=== PATIENT | male | born 1940 | race Caucasian/White ===

== ENCOUNTER 2021-05-06 01:08 | Observation (INO) | payer OTHER ==
[2021-05-06 03:17] LABS: BASO % 0.7 % (0-2.0); EOS % 1.3 % (0-4.5); HEMATOCRIT 39.1 % (35.4-49); HEMOGLOBIN 13.4 GM/dL (11.7-16.9); LYMPH % 14.6 % (8-40); MCHC 34.2 g/dl (32.0-35.9); MEAN CELL VOLUME 99.4 fl (80-96); MEAN PLT VOLUME 9.6 fl (7.5-11.1); MONO % 12.5 % (3.8-10.2); NEUT % 70.9 % (42.8-82.8); PLATELET COUNT 189 10^3/uL (134-434); RBC 3.93 M/mm3 (4.00-5.60); RDW 13.2 % (11.9-15.9); WHITE BLOOD COUNT 4.4 K/mm3 (4.0-10.0)
[2021-05-06 03:35] LABS: CHLORIDE 106 mmol/L (98-107); SODIUM 140 mmol/L (136-145)
[2021-05-06 03:37] LABS: ALBUMIN 4.1 g/dl (3.4-5.0); ANION GAP 7 MMOL/L (8-16); BLOOD UREA NITROGEN 35.2 mg/dL (7-18); CALCIUM 9.5 mg/dL (8.5-10.1); CO2 27 mmol/L (21-32); GLUCOSE,RANDOM 87 mg/dL (74-106)
[2021-05-06 03:40] LABS: CREATININE 1.3 mg/dL (0.55-1.3); SGOT/AST 43 U/L (15-37); SGPT/ALT 41 U/L (13-61)
[2021-05-06 03:42] LABS: BILIRUBIN,TOTAL 0.4 mg/dL (0.2-1); TOT PROT 7.3 g/dl (6.4-8.2)
[2021-05-06 03:44] LABS: ALK PHOS 97 U/L (45-117)
[2021-05-06 03:47] LABS: INR 1.13 (0.83-1.09); PROTHROMBIN TIME (PATIENT) 12.7 SEC (9.7-13.0)
[2021-05-06 03:50] LABS: ACTIVATED PTT 32.3 SECONDS (25.2-36.5)
[2021-05-06] MEDS ORDERED: ACETAMINOPHEN 1000 MG/100 ML VIAL IVPB ONE (04:38)
[2021-05-06] MEDS ORDERED: ACETAMINOPHEN INJECTION 100 ML IVPB ONE (04:54)
[2021-05-06] MEDS ORDERED: ACETAMINOPHEN 500 MG TABLET (FP) PO ONE (05:04)
[2021-05-06] MEDS ORDERED: ACETAMINOPHEN 325 MG TABLET (FP) ONE ×2 (05:33→21:09)
[2021-05-06] MEDS ORDERED: DIPHTH,PERTUSS(ACELL),TET 0.5 ML DISP.SYRIN IM ONE ×2 (05:40→05:54)
[2021-05-06] MEDS ORDERED: ACETAMINOPHEN 325 MG TABLET (FP) PO PRN (11:54)
[2021-05-06] MEDS ORDERED: amLODIPine BESYLATE 10 MG TABLET (FP) PO ONE (12:51)
[2021-05-06] MEDS ORDERED: LOSARTAN POTASSIUM 25 MG TABLET PO ONE (12:52)
[2021-05-06] MEDS: MULTIVITAMINS (DAILY MVI) TABLET (FP) PO SCH (13:00)
[2021-05-06] MEDS: THIAMINE HCL 100 MG TABLET (FP) PO SCH (13:00)
[2021-05-06] MEDS ORDERED: MULTIVITAMINS (DAILY MVI) TABLET (FP) ONE (13:21)
[2021-05-06] MEDS ORDERED: THIAMINE HCL 100 MG TABLET (FP) ONE (13:22)
[2021-05-06] MEDS ORDERED: amLODIPine BESYLATE 5 MG TABLET (FP) ONE (13:22)
[2021-05-06] MEDS ORDERED: LOSARTAN POTASSIUM 50 MG TABLET ONE (13:22)
[2021-05-06 19:52] LABS: COCAINE, UR NEGATIVE (NEGATIVE); METHADONE, UR NEGATIVE (NEGATIVE); OPIATES, URI NEGATIVE (NEGATIVE); URINE BARBITURATES NEGATIVE (NEGATIVE); URINE BENZODIAZEPINES NEGATIVE (NEGATIVE)
[2021-05-06 19:53] LABS: PHENCYCLIDINE,URINE NEGATIVE (NEGATIVE)
[2021-05-06 20:01] LABS: URINE AMPHETAMINES NEGATIVE (NEGATIVE)
[2021-05-06] MEDS ORDERED: APIXABAN 5 MG TABLET ONE (21:09)
[2021-05-06] MEDS: APIXABAN 5 MG TABLET PO SCH (21:19)
[2021-05-06] MEDS ORDERED: ATORVASTATIN CA 10 MG TABLET (FP) PO SCH (22:00)
[2021-05-07 01:52] VITALS: BMI 23.2
[2021-05-07 06:49] LABS: BASO % 0.4 % (0-2.0); EOS % 0.8 % (0-4.5); HEMATOCRIT 35.2 % (35.4-49); HEMOGLOBIN 12.2 GM/dL (11.7-16.9); LYMPH % 12.5 % (8-40); MCHC 34.7 g/dl (32.0-35.9); MEAN CELL VOLUME 98.2 fl (80-96); MEAN PLT VOLUME 9.7 fl (7.5-11.1); MONO % 15.1 % (3.8-10.2); NEUT % 71.2 % (42.8-82.8); PLATELET COUNT 168 10^3/uL (134-434); RBC 3.59 M/mm3 (4.00-5.60); WHITE BLOOD COUNT 4.2 K/mm3 (4.0-10.0)
[2021-05-07 07:06] LABS: CALCIUM 8.7 mg/dL (8.5-10.1)
[2021-05-07 07:07] LABS: BLOOD UREA NITROGEN 30.6 mg/dL (7-18); MAGNESIUM 2.1 mg/dL (1.8-2.4)
[2021-05-07 07:10] LABS: CREATININE 1.1 mg/dL (0.55-1.3)
[2021-05-07 07:11] LABS: BILIRUBIN,TOTAL 0.8 mg/dL (0.2-1); TOT PROT 5.9 g/dl (6.4-8.2)
[2021-05-07 07:26] LABS: ALBUMIN 3.1 g/dl (3.4-5.0)
[2021-05-07] MEDS: amLODIPine BESYLATE 10 MG TABLET (FP) PO SCH (09:49)
[2021-05-07] MEDS: LOSARTAN POTASSIUM 25 MG TABLET PO SCH (09:50)
[2021-05-07] MEDS: THIAMINE HCL 100 MG TABLET (FP) PO SCH (09:50)
[2021-05-07] MEDS: MULTIVITAMINS (DAILY MVI) TABLET (FP) PO SCH (09:50)
[2021-05-07] MEDS: APIXABAN 5 MG TABLET PO SCH ×2 (09:50→21:06)
[2021-05-07] MEDS ORDERED: PNEUMOC 13-VAL CONJ-DIP CRM/PF 0.5 ML DISP.SYRIN IM ONE (10:00)
[2021-05-08 07:33] LABS: BASO % 0.5 % (0-2.0); EOS % 0.8 % (0-4.5); HEMOGLOBIN 12.8 GM/dL (11.7-16.9); LYMPH % 12.4 % (8-40); MCHC 34.6 g/dl (32.0-35.9); MEAN CELL VOLUME 98.1 fl (80-96); MEAN PLT VOLUME 9.7 fl (7.5-11.1); MONO % 14.1 % (3.8-10.2); NEUT % 72.2 % (42.8-82.8); PLATELET COUNT 182 10^3/uL (134-434); RBC 3.77 M/mm3 (4.00-5.60); RDW 12.9 % (11.9-15.9)
[2021-05-08 07:55] LABS: CALCIUM 9.4 mg/dL (8.5-10.1)
[2021-05-08 07:56] LABS: ALBUMIN 3.4 g/dl (3.4-5.0); BLOOD UREA NITROGEN 29.1 mg/dL (7-18)
[2021-05-08 08:00] LABS: BILIRUBIN,TOTAL 0.7 mg/dL (0.2-1); TOT PROT 6.5 g/dl (6.4-8.2)
[2021-05-08] MEDS: amLODIPine BESYLATE 10 MG TABLET (FP) PO SCH (09:28)
[2021-05-08] MEDS: APIXABAN 5 MG TABLET PO SCH (09:28)
[2021-05-08] MEDS: THIAMINE HCL 100 MG TABLET (FP) PO SCH (09:28)
[2021-05-08] MEDS: MULTIVITAMINS (DAILY MVI) TABLET (FP) PO SCH (09:28)
[2021-05-08] MEDS: LOSARTAN POTASSIUM 25 MG TABLET PO SCH (09:28)
[2021-05-08] MEDS ORDERED: LOSARTAN POTASSIUM 50 MG TABLET PO SCH (11:18)
[2021-05-08 15:21] VITALS: BP 135/83; PULSE 66; TEMP 97.4
== END 2021-05-08 17:19 | disposition home or self-care (01) ==
LOC: JER 01:08 → JERBED 10:07 → J4W 05-07 02:00
PROVIDERS: ADMIT Internal Medicine
PROC: 3E0234Z Introduction of Serum, Toxoid and Vaccine into Muscle, Percutaneous Approach (ICD-10-PCS; principal; 2021-05-06)
DX: S52.209A Unspecified fracture of shaft of unspecified ulna, initial encounter for closed fracture (principal); V47.5XXA Car driver injured in collision with fixed or stationary object in traffic accident, initial encounter; Y93.89 Activity, other specified; Y92.89 Other specified places as the place of occurrence of the external cause; I48.91 Unspecified atrial fibrillation; Z79.01 Long term (current) use of anticoagulants; I10 Essential (primary) hypertension; R55 Syncope and collapse; G31.84 Mild cognitive impairment of uncertain or unknown etiology; R42 Dizziness and giddiness; R51.9 Headache, unspecified; R20.0 Anesthesia of skin
CPT/HCPCS: 36415; 70450-TC; 71045-TC-FY; 72125-TC; 73090-TC-LT-FY; 73110-TC-LT-FY; 73130-TC-LT-FY; 80053; 80307; 82550; 82553; 83735; 84443; 84484; 85025; 85610; 85730; 86850; 86900; 86901; 90715; 93005; 93010; 93880-TC; 96372; 99285-25; C9803; G0378; U0003; U0005

== ENCOUNTER 2021-05-17 08:30 | Day surgery (SDC) | payer OTHER ==
[2021-05-16 16:14] VITALS: BMI 23.3
[2021-05-17] MEDS ORDERED: MIDAZOLAM HCL 2 MG/2 ML SINGLE DOSE VIAL ONE (11:50)
[2021-05-17] MEDS ORDERED: ROPIVACAINE HCL 0.5% 30ML VIAL ONE (11:50)
[2021-05-17] MEDS ORDERED: LACTATED RINGERS SOLUTION 1,000 ML IV SCH (15:00)
[2021-05-17] MEDS ORDERED: ONDANSETRON 4 MG/2 ML VIAL IVPUSH PRN (15:00)
[2021-05-17] MEDS ORDERED: oxyCODONE HCL 5 MG TABLET PO PRN ×2 (15:22)
[2021-05-17] MEDS ORDERED: ACETAMINOPHEN 500 MG TABLET (FP) PO SCH (15:30)
[2021-05-17] MEDS ORDERED: ACETAMINOPHEN INJECTION 100 ML IVPB ONE (15:41)
[2021-05-17] MEDS: ACETAMINOPHEN 1000 MG/100 ML VIAL IVPB ONE ×2 (15:55→17:10)
[2021-05-17] MEDS: ACETAMINOPHEN 500 MG TABLET (FP) PO SCH (21:32)
[2021-05-17] MEDS: APIXABAN 5 MG TABLET PO SCH (22:47)
[2021-05-18] MEDS: ACETAMINOPHEN 500 MG TABLET (FP) PO SCH ×2 (03:37→09:13)
[2021-05-18] MEDS: APIXABAN 5 MG TABLET PO SCH (09:11)
[2021-05-18 09:19] VITALS: BP 115/68; PULSE 65; TEMP 98.1
[2021-05-18] MEDS ORDERED: amLODIPine BESYLATE 10 MG TABLET (FP) PO SCH (10:00)
[2021-05-18] MEDS ORDERED: THIAMINE HCL 100 MG TABLET (FP) PO SCH (10:00)
[2021-05-18] MEDS ORDERED: LOSARTAN POTASSIUM 25 MG TABLET PO SCH (10:00)
== END 2021-05-18 11:11 | disposition home or self-care (01) ==
LOC: FASUSAT 08:30 → FASU 08:30 → FM/S 14:44 → FASUSAT 05-18 11:11
PROVIDERS: ATTEND Orthopaedic Surgery
PROC: 0PSL04Z Reposition Left Ulna with Internal Fixation Device, Open Approach (ICD-10-PCS; principal; 2021-05-17 13:29)
DX: S52.202A Unspecified fracture of shaft of left ulna, initial encounter for closed fracture (principal); X58.XXXA Exposure to other specified factors, initial encounter; Y93.9 Activity, unspecified; Y92.9 Unspecified place or not applicable
CPT/HCPCS: 73110-TC-LT-FY; 94760; 97116-GP; 97162-GP; J0131

== ENCOUNTER 2021-07-10 12:54 | Inpatient (IN) | payer OTHER, MEDICARE ==
[2021-07-10 13:56] VITALS: BMI 23.3
[2021-07-10 16:28] LABS: BASO % 0.3 % (0-2.0); EOS % 0.3 % (0-4.5); HEMATOCRIT 32.7 % (35.4-49); HEMOGLOBIN 11.2 GM/dL (11.7-16.9); LYMPH % 11.4 % (8-40); MCH 33.6 pg (25.7-33.7); MCHC 34.2 g/dl (32.0-35.9); MEAN CELL VOLUME 98.2 fl (80-96); MEAN PLT VOLUME 9.5 fl (7.5-11.1); MONO % 12.7 % (3.8-10.2); NEUT % 75.3 % (42.8-82.8); PLATELET COUNT 190 10^3/uL (134-434); RBC 3.33 M/mm3 (4.00-5.60); WHITE BLOOD COUNT 4.4 K/mm3 (4.0-10.0)
[2021-07-10 16:49] LABS: CHLORIDE 107 mmol/L (98-107); SODIUM 144 mmol/L (136-145)
[2021-07-10 16:51] LABS: ALBUMIN 3.7 g/dl (3.4-5.0); ANION GAP 9 MMOL/L (8-16); BLOOD UREA NITROGEN 29.6 mg/dL (7-18); CALCIUM 9.5 mg/dL (8.5-10.1); CO2 28 mmol/L (21-32); GLUCOSE,RANDOM 103 mg/dL (74-106)
[2021-07-10 16:54] LABS: SGPT/ALT 74 U/L (13-61)
[2021-07-10 16:55] LABS: SGOT/AST 210 U/L (15-37)
[2021-07-10 16:56] LABS: BILIRUBIN,TOTAL 0.8 mg/dL (0.2-1); TOT PROT 6.6 g/dl (6.4-8.2)
[2021-07-10 16:57] LABS: ALK PHOS 102 U/L (45-117)
[2021-07-10] MEDS ORDERED: LIDOCAINE PATCH REMOVAL MC SCH (22:00)
[2021-07-10] MEDS ORDERED: POLYETHYLENE GLYCOL (HEALTHYLAX) 3350 17 GM PACKET PO SCH (23:02)
[2021-07-10] MEDS ORDERED: SENNOSIDES 8.6MG TABLET (FP) PO PRN (23:02)
[2021-07-10] MEDS ORDERED: DOCUSATE SODIUM 100 MG CAPSULE (FP) PO SCH (23:15)
[2021-07-10] MEDS ORDERED: LIDOCAINE 5% TOPICAL PATCH TP PRN (23:18)
[2021-07-11] MEDS ORDERED: APIXABAN 5 MG TABLET ONE ×2 (00:21→12:17)
[2021-07-11] MEDS: APIXABAN 5 MG TABLET PO SCH ×2 (00:51→12:28)
[2021-07-11] MEDS ORDERED: FOLIC ACID INJECTION - 1 MG, THIAMINE HCL 100 MG, MULTIVIT INJECTION ADULT 10 ML in SOD... IVPB ONE (01:00)
[2021-07-11 01:04] LABS: PH,URINE 6.5 (5.0-8.0); URINE APPEARANCE CLEAR; URINE BILIRUBIN NEGATIVE (NEGATIVE); URINE COLOR YELLOW; URINE GLUCOSE (UA) NEGATIVE (NEGATIVE); URINE KETONE NEGATIVE (NEGATIVE); URINE LEUK ESTERASE NEGATIVE (NEGATIVE); URINE NITRITE NEGATIVE (NEGATIVE); URINE PROTEIN TRACE (NEGATIVE)
[2021-07-11 01:11] LABS: COCAINE, UR NEGATIVE (NEGATIVE); METHADONE, UR NEGATIVE (NEGATIVE); OPIATES, URI NEGATIVE (NEGATIVE); PHENCYCLIDINE,URINE NEGATIVE (NEGATIVE); URINE BARBITURATES NEGATIVE (NEGATIVE)
[2021-07-11 01:12] LABS: URINE AMPHETAMINES NEGATIVE (NEGATIVE); URINE BENZODIAZEPINES NEGATIVE (NEGATIVE)
[2021-07-11 07:10] LABS: HEMATOCRIT 33.6 % (35.4-49); HEMOGLOBIN 10.9 GM/dL (11.7-16.9); MCH 32.5 pg (25.7-33.7); MCHC 32.4 g/dl (32.0-35.9); MEAN CELL VOLUME 100.2 fl (80-96); MEAN PLT VOLUME 10.2 fl (7.5-11.1); PLATELET COUNT 188 10^3/uL (134-434); RBC 3.35 M/mm3 (4.00-5.60); RDW 14.1 % (11.9-15.9); WHITE BLOOD COUNT 3.1 K/mm3 (4.0-10.0)
[2021-07-11 07:31] LABS: ALBUMIN 3.2 g/dl (3.4-5.0); BLOOD UREA NITROGEN 25.8 mg/dL (7-18); CALCIUM 9.2 mg/dL (8.5-10.1); MAGNESIUM 2.3 mg/dL (1.8-2.4)
[2021-07-11 07:34] LABS: CREATININE 0.9 mg/dL (0.55-1.3)
[2021-07-11 07:36] LABS: BILIRUBIN,TOTAL 0.8 mg/dL (0.2-1); TOT PROT 5.9 g/dl (6.4-8.2)
[2021-07-11 07:49] VITALS: BP 127/69; PULSE 65; TEMP 97.8
[2021-07-11] MEDS ORDERED: LOSARTAN POTASSIUM 25 MG TABLET PO SCH (10:00)
[2021-07-11] MEDS ORDERED: FOLIC ACID 1 MG TABLET (FP) PO SCH (10:00)
[2021-07-11] MEDS ORDERED: THIAMINE HCL 200 MG/2 ML VIAL IVPB SCH (10:00)
[2021-07-11] MEDS ORDERED: amLODIPine BESYLATE 5 MG TABLET (FP) PO SCH (10:00)
[2021-07-11] MEDS ORDERED: SENNOSIDES 8.6MG TABLET (FP) PO SCH ×2 (10:00→22:00)
[2021-07-11] MEDS ORDERED: amLODIPine BESYLATE 5 MG TABLET (FP) ONE (12:17)
== END 2021-07-11 17:04 | DRG 433 ==
LOC: JER 12:54 → JERBED 19:47 → UNDOADMOB 19:47 → INTOOBSV 19:47 → JERBED 23:02 → UNDOADMOB 07-11 11:45 → JERBED 07-11 11:45 → INTOOBSV 07-11 16:03 → OBSVTOIN 07-11 16:03
PROVIDERS: ADMIT Hospitalist
DX: K70.10 Alcoholic hepatitis without ascites (principal); R44.3 Hallucinations, unspecified; M54.9 Dorsalgia, unspecified; I48.91 Unspecified atrial fibrillation; Z79.01 Long term (current) use of anticoagulants; I10 Essential (primary) hypertension; F03.90 Unspecified dementia, unspecified severity, without behavioral disturbance, psychotic disturbance, mood disturbance, and anxiety; R62.7 Adult failure to thrive; Z68.23 Body mass index [BMI] 23.0-23.9, adult; R74.01 Elevation of levels of liver transaminase levels; M54.50 Low back pain, unspecified; D53.9 Nutritional anemia, unspecified; K59.00 Constipation, unspecified; R29.6 Repeated falls; M25.532 Pain in left wrist; K76.0 Fatty (change of) liver, not elsewhere classified
CPT/HCPCS: 36415; 70450-TC; 72100-TC-FY; 72131-TC; 73090-TC-LT-FY; 73110-TC-LT-FY; 73130-TC-LT-FY; 76705-TC; 80053; 80307; 81003; 82607; 82746; 83735; 84100; 84484; 85025; 85027; 86705; 86707; 87350; 87517; 87522; 93005; 93010; 99285-25; C9803; G0378; U0003; U0005

== ENCOUNTER 2022-08-05 15:32 | Emergency (ER) | payer OTHER, MEDICARE ==
[2022-08-05 15:51] VITALS: BP 150/96; PULSE 52; RESP 16; TEMP 98.9; BMI 21.8
== END 2022-08-05 17:04 | disposition home or self-care (01) ==
LOC: FER 15:32
DX: R04.0 Epistaxis (principal)
CPT/HCPCS: 99281-25

== ENCOUNTER 2022-09-16 18:16 | Inpatient (IN) | payer OTHER, MEDICARE ==
[2022-09-16] MEDS ORDERED: SODIUM CHLORIDE 0.9% 500 ML INFUS.BAG IV ONE (20:09)
[2022-09-16] MEDS ORDERED: QUEtiapine FUMARATE 25 MG TABLET PO ONE (21:12)
[2022-09-16 21:14] LABS: BASO % 0.4 % (0-2.0); EOS % 0.1 % (0-4.5); HEMATOCRIT 35.9 % (35.4-49); HEMOGLOBIN 12.1 GM/dL (11.7-16.9); LYMPH % 16.1 % (8-40); MCHC 33.8 g/dl (32.0-35.9); MEAN CELL VOLUME 97.7 fl (80-96); MEAN PLT VOLUME 10.6 fl (7.5-11.1); NEUT % 71.4 % (42.8-82.8); PLATELET COUNT 140 10^3/uL (134-434); RBC 3.67 M/mm3 (4.00-5.60); RDW 14.4 % (11.9-15.9); WHITE BLOOD COUNT 3.6 K/mm3 (4.0-10.0)
[2022-09-16 21:17] LABS: EPI CELLS 0 /uL (0-25.1); HYALINE CASTS 0 /uL (0-3.1); URINE APPEARANCE CLEAR; URINE BACTERIA 1 /uL (0-1359); URINE BILIRUBIN NEGATIVE (NEGATIVE); URINE COLOR YELLOW; URINE GLUCOSE (UA) NEGATIVE (NEGATIVE); URINE KETONE NEGATIVE (NEGATIVE); URINE LEUK ESTERASE NEGATIVE (NEGATIVE); URINE NITRITE NEGATIVE (NEGATIVE); URINE PROTEIN 1+ (NEGATIVE); URINE RBC 8 /uL (0-23.9); URINE UROBILINOGEN 0.2 mg/dL (0.2-1.0); URINE WBC 0 /uL (0-25.8)
[2022-09-16 21:22] LABS: PROTHROMBIN TIME (PATIENT) 11.6 SEC (9.7-13.0)
[2022-09-16 21:24] LABS: ACTIVATED PTT 31.4 SECONDS (25.2-36.5)
[2022-09-16 21:28] LABS: CHLORIDE 110 mmol/L (98-107); SODIUM 145 mmol/L (136-145)
[2022-09-16 21:31] LABS: ALBUMIN 3.7 g/dl (3.4-5.0); ANION GAP 4 MMOL/L (8-16); BLOOD UREA NITROGEN 34.9 mg/dL (7-18); CALCIUM 9.4 mg/dL (8.5-10.1); CO2 30 mmol/L (21-32); GLUCOSE,RANDOM 103 mg/dL (74-106); MAGNESIUM 2.3 mg/dL (1.8-2.4)
[2022-09-16] MEDS ORDERED: QUEtiapine FUMARATE 25 MG TABLET ONE (21:33)
[2022-09-16 21:34] LABS: CREATININE 1.2 mg/dL (0.55-1.3); PHOSPHOROUS 2.8 mg/dL (2.5-4.9); SGOT/AST 25 U/L (15-37); SGPT/ALT 20 U/L (13-61)
[2022-09-16 21:36] LABS: BILIRUBIN,TOTAL 0.7 mg/dL (0.2-1); TOT PROT 6.4 g/dl (6.4-8.2)
[2022-09-16 21:37] LABS: ALK PHOS 70 U/L (45-117)
[2022-09-17] MEDS ORDERED: HALOPERIDOL LACTATE 5 MG/ML IM ONE ×2 (00:15→00:16)
[2022-09-17] MEDS ORDERED: LORazepam 2 MG/ML SDV VIAL IVPUSH ONE (00:39)
[2022-09-17] MEDS ORDERED: MAGNESIUM HYDROX 2400MG/30ML ORAL SUSPENSION 30 ML CUP PO PRN (02:35)
[2022-09-17] MEDS ORDERED: ENOXAPARIN NA (PORCINE) 40 MG/0.4 ML DISP.SYRIN SQ ONE (09:57)
[2022-09-17] MEDS ORDERED: SENNOSIDES 8.6MG TABLET (FP) PO ONE (09:57)
[2022-09-17] MEDS ORDERED: POLYETHYLENE GLYCOL (HEALTHYLAX) 3350 17 GM PACKET ONE (09:57)
[2022-09-17] MEDS ORDERED: ENOXAPARIN NA (PORCINE) 40 MG/0.4 ML DISP.SYRIN SQ SCH (10:00)
[2022-09-17] MEDS: POLYETHYLENE GLYCOL (HEALTHYLAX) 3350 17 GM PACKET PO SCH (10:06)
[2022-09-17] MEDS: SODIUM CHLORIDE 1,000 ML IV SCH (10:06)
[2022-09-17] MEDS: SENNOSIDES 8.6MG TABLET (FP) PO SCH ×2 (10:06→23:34)
[2022-09-17 11:17] LABS: BASO % 0.4 % (0-2.0); EOS % 0.1 % (0-4.5); HEMATOCRIT 41.4 % (35.4-49); HEMOGLOBIN 14.1 GM/dL (11.7-16.9); LYMPH % 7.5 % (8-40); MCH 32.8 pg (25.7-33.7); MEAN CELL VOLUME 96.7 fl (80-96); MONO % 11.3 % (3.8-10.2); NEUT % 80.7 % (42.8-82.8); PLATELET COUNT 175 10^3/uL (134-434); RBC 4.29 M/mm3 (4.00-5.60); WHITE BLOOD COUNT 5.6 K/mm3 (4.0-10.0)
[2022-09-17 11:37] LABS: CALCIUM 9.9 mg/dL (8.5-10.1)
[2022-09-17 11:38] LABS: ALBUMIN 3.9 g/dl (3.4-5.0); BLOOD UREA NITROGEN 25.1 mg/dL (7-18); MAGNESIUM 2.3 mg/dL (1.8-2.4)
[2022-09-17 11:41] LABS: CREATININE 1.1 mg/dL (0.55-1.3); PHOSPHOROUS 2.8 mg/dL (2.5-4.9)
[2022-09-17 11:43] LABS: BILIRUBIN,TOTAL 0.9 mg/dL (0.2-1)
[2022-09-17] MEDS ORDERED: LORazepam 2 MG TABLET PO PRN (13:03)
[2022-09-17] MEDS ORDERED: LORazepam 1 MG TABLET PO PRN (13:04)
[2022-09-17] MEDS ORDERED: LORazepam 1 MG TABLET ONE (14:02)
[2022-09-17] MEDS ORDERED: QUEtiapine FUMARATE 25 MG TABLET PO SCH (22:00)
[2022-09-18] MEDS: RIVAROXABAN 20 MG TABLET PO SCH (09:43)
[2022-09-18] MEDS: amLODIPine BESYLATE 5 MG TABLET (FP) PO SCH (09:43)
[2022-09-18] MEDS: SENNOSIDES 8.6MG TABLET (FP) PO SCH ×2 (09:43→21:22)
[2022-09-18] MEDS: LOSARTAN POTASSIUM 25 MG TABLET PO SCH (09:43)
[2022-09-18] MEDS: metoPROLOL SUCCINATE 25 MG TAB.SR.24H (FP) PO SCH (09:43)
[2022-09-18] MEDS: SODIUM CHLORIDE 1,000 ML IV SCH (09:44)
[2022-09-18] MEDS: POLYETHYLENE GLYCOL (HEALTHYLAX) 3350 17 GM PACKET PO SCH (09:44)
[2022-09-18] MEDS ORDERED: QUEtiapine FUMARATE 25 MG TABLET PO ONE (12:30)
[2022-09-18] MEDS ORDERED: SODIUM CHLORIDE 0.45% 1,000 ML IV SCH (17:45)
[2022-09-18] MEDS: THIAMINE HCL 200 MG/2 ML VIAL IVPB SCH (21:22)
[2022-09-18] MEDS: SODIUM CHLORIDE 0.45% 1,000 ML IV SCH (21:23)
[2022-09-18] MEDS ORDERED: OLANZapine 5 MG TABLET PO SCH (22:00)
[2022-09-19 08:10] LABS: BASO % 0.1 % (0-2.0); HEMATOCRIT 38.6 % (35.4-49); HEMOGLOBIN 13.5 GM/dL (11.7-16.9); LYMPH % 3.4 % (8-40); MCH 33.7 pg (25.7-33.7); MCHC 35.1 g/dl (32.0-35.9); MEAN CELL VOLUME 95.9 fl (80-96); MEAN PLT VOLUME 10.5 fl (7.5-11.1); MONO % 7.6 % (3.8-10.2); NEUT % 88.9 % (42.8-82.8); PLATELET COUNT 162 10^3/uL (134-434); RBC 4.02 M/mm3 (4.00-5.60); WHITE BLOOD COUNT 8.7 K/mm3 (4.0-10.0)
[2022-09-19 08:16] LABS: CALCIUM 9.6 mg/dL (8.5-10.1)
[2022-09-19 08:17] LABS: ALBUMIN 3.5 g/dl (3.4-5.0)
[2022-09-19 08:21] LABS: TOT PROT 6.6 g/dl (6.4-8.2)
[2022-09-19 08:22] LABS: BILIRUBIN,TOTAL 1.2 mg/dL (0.2-1)
[2022-09-19 08:29] LABS: BLOOD UREA NITROGEN 28.8 mg/dL (7-18)
[2022-09-19] MEDS: amLODIPine BESYLATE 5 MG TABLET (FP) PO SCH ×2 (10:53→21:25)
[2022-09-19] MEDS: SENNOSIDES 8.6MG TABLET (FP) PO SCH ×2 (10:53→21:22)
[2022-09-19] MEDS: RIVAROXABAN 20 MG TABLET PO SCH (10:53)
[2022-09-19] MEDS: POLYETHYLENE GLYCOL (HEALTHYLAX) 3350 17 GM PACKET PO SCH (10:54)
[2022-09-19] MEDS: THIAMINE HCL 200 MG/2 ML VIAL IVPB SCH ×2 (10:54→21:26)
[2022-09-19] MEDS: LOSARTAN POTASSIUM 25 MG TABLET PO SCH (10:55)
[2022-09-19] MEDS: metoPROLOL SUCCINATE 25 MG TAB.SR.24H (FP) PO SCH (10:55)
[2022-09-19] MEDS ORDERED: OLANZapine 5 MG TABLET PO SCH (15:03)
[2022-09-19] MEDS: SODIUM CHLORIDE 0.45% 1,000 ML IV SCH (16:34)
[2022-09-20] MEDS: THIAMINE HCL 200 MG/2 ML VIAL IVPB SCH ×4 (01:49→22:19)
[2022-09-20] MEDS: SODIUM CHLORIDE 0.45% 1,000 ML IV SCH (01:50)
[2022-09-20 05:34] LABS: HEMATOCRIT 39.9 % (35.4-49); HEMOGLOBIN 13.5 GM/dL (11.7-16.9); MCH 33.5 pg (25.7-33.7); MCHC 33.8 g/dl (32.0-35.9); MEAN PLT VOLUME 10.5 fl (7.5-11.1); PLATELET COUNT 140 10^3/uL (134-434); RBC 4.03 M/mm3 (4.00-5.60); RDW 13.8 % (11.9-15.9); WHITE BLOOD COUNT 9.3 K/mm3 (4.0-10.0)
[2022-09-20] MEDS: PIPERACILLIN/TAZOB 4.5 GM 4.5 GM in DEXTROSE 5%-WATER 100 ML IVPB SCH ×4 (05:56→12:11)
[2022-09-20 06:01] LABS: CALCIUM 9.4 mg/dL (8.5-10.1)
[2022-09-20 06:03] LABS: ALBUMIN 3.1 g/dl (3.4-5.0); BLOOD UREA NITROGEN 46.8 mg/dL (7-18); MAGNESIUM 2.5 mg/dL (1.8-2.4)
[2022-09-20 06:06] LABS: CREATININE 1.8 mg/dL (0.55-1.3); PHOSPHOROUS 7.7 mg/dL (2.5-4.9)
[2022-09-20 06:07] LABS: BILIRUBIN,TOTAL 1.1 mg/dL (0.2-1); TOT PROT 6.1 g/dl (6.4-8.2)
[2022-09-20 06:12] LABS: ARTERIAL BLD GAS O2 SATURATION 97.4 % (95-98); ARTERIAL BLOOD GAS BASE EXCESS -3.9 mmol/L (-2-2); ARTERIAL BLOOD GAS PO2 110.2 mmHg (80-100); ARTERIAL BLOOD GAS pH 7.273 (7.350-7.450)
[2022-09-20 06:14] LABS: LACTIC ACID 6.1 mmol/L (0.4-2.0)
[2022-09-20 06:16] LABS: ALLENS TEST POSITIVE
[2022-09-20] MEDS ORDERED: LACTATED RINGERS SOLUTION 1000 ML INFUS.BAG IV ONE ×2 (06:16→07:45)
[2022-09-20 06:17] LABS: VENT MODE A/C; VENT RATE 20
[2022-09-20 08:04] LABS: EPI CELLS 10 /uL (0-25.1); HYALINE CASTS 2 /uL (0-3.1); PH,URINE 5.5 (5.0-8.0); URINE APPEARANCE CLOUDY; URINE BILIRUBIN 1+ (NEGATIVE); URINE COLOR ORANGE; URINE GLUCOSE (UA) NEGATIVE (NEGATIVE); URINE KETONE NEGATIVE (NEGATIVE); URINE LEUK ESTERASE 1+ (NEGATIVE); URINE NITRITE POSITIVE (NEGATIVE); URINE PROTEIN 4+ (NEGATIVE); URINE RBC 10419 /uL (0-23.9); URINE WBC 212 /uL (0-25.8)
[2022-09-20 08:52] LABS: URINE BACTERIA 0.9 /uL (0-1359)
[2022-09-20] MEDS: PANTOPRAZOLE SODIUM 40 MG VIAL IVPUSH SCH (09:07)
[2022-09-20] MEDS: DEXTROSE 5%-0.45% SALINE 1,000 ML IV SCH (09:08)
[2022-09-20] MEDS: RIVAROXABAN 20 MG TABLET PO SCH (09:08)
[2022-09-20] MEDS: POLYETHYLENE GLYCOL (HEALTHYLAX) 3350 17 GM PACKET NGT SCH (09:08)
[2022-09-20] MEDS: SENNOSIDES 8.6MG TABLET (FP) PO SCH ×2 (09:08→22:19)
[2022-09-20 10:53] LABS: LACTIC ACID 4.8 mmol/L (0.4-2.0)
[2022-09-20] MEDS: MUPIROCIN 2% TOPICAL OINTMENT FOR DECOLONIZATION NS SCH ×2 (11:51→22:49)
[2022-09-20] MEDS: METOPROLOL TARTRATE 5 MG/5 ML VIAL IVPUSH SCH ×2 (17:13→22:20)
[2022-09-20] MEDS: PIPERACILLIN/TAZOB 3.375 GM 3.375 GM in DEXTROSE 5%-WATER - 50 ML IVPB SCH (17:14)
[2022-09-20] MEDS ORDERED: RAPID SEQUENCE INTUBATION KIT NR ONE (17:29)
[2022-09-20] MEDS ORDERED: ROCURONIUM BROMIDE 50 MG/5 ML VIAL ONE (17:38)
[2022-09-20] MEDS: LACTATED RINGERS SOLUTION 1,000 ML/1,000 ML INFUS.BAG IV SCH (18:55)
[2022-09-20] MEDS: ACETAMINOPHEN 1000 MG/100 ML BAG IVPB PRN (22:23)
[2022-09-20] MEDS: CHLORHEXIDINE GLUCONATE 4% CLEANSER FOR DECOLONIZATION TP SCH (22:49)
[2022-09-21] MEDS: PIPERACILLIN/TAZOB 3.375 GM 3.375 GM in DEXTROSE 5%-WATER - 50 ML IVPB SCH ×3 (01:42→17:15)
[2022-09-21] MEDS: METOPROLOL TARTRATE 5 MG/5 ML VIAL IVPUSH SCH (05:00)
[2022-09-21 05:11] LABS: ARTERIAL BLD GAS O2 SATURATION 97.4 % (95-98); ARTERIAL BLOOD GAS BASE EXCESS 1.4 mmol/L (-2-2); ARTERIAL BLOOD GAS PO2 93.6 mmHg (80-100); ARTERIAL BLOOD GAS pH 7.443 (7.350-7.450)
[2022-09-21 05:36] LABS: ALLENS TEST POSITIVE; VENT MODE A/C; VENT RATE 12
[2022-09-21] MEDS: THIAMINE HCL 200 MG/2 ML VIAL IVPB SCH ×3 (06:05→21:42)
[2022-09-21] MEDS: LACTATED RINGERS SOLUTION 1,000 ML/1,000 ML INFUS.BAG IV SCH ×2 (06:06→21:41)
[2022-09-21 07:42] LABS: HEMATOCRIT 38.5 % (35.4-49); HEMOGLOBIN 13.2 GM/dL (11.7-16.9); MCH 33.2 pg (25.7-33.7); MCHC 34.2 g/dl (32.0-35.9); MEAN PLT VOLUME 11.1 fl (7.5-11.1); PLATELET COUNT 121 10^3/uL (134-434); RBC 3.97 M/mm3 (4.00-5.60); WHITE BLOOD COUNT 9.9 K/mm3 (4.0-10.0)
[2022-09-21 08:02] LABS: BLOOD UREA NITROGEN 47.6 mg/dL (7-18)
[2022-09-21 08:03] LABS: ALBUMIN 2.7 g/dl (3.4-5.0)
[2022-09-21 08:06] LABS: BILIRUBIN,TOTAL 1.3 mg/dL (0.2-1); CREATININE 1.5 mg/dL (0.55-1.3); PHOSPHOROUS 2.7 mg/dL (2.5-4.9); TOT PROT 5.7 g/dl (6.4-8.2)
[2022-09-21] MEDS: DEXTROSE 5%-0.45% SALINE 1,000 ML IV SCH (08:15)
[2022-09-21] MEDS ORDERED: METOPROLOL TARTRATE 5 MG/5 ML VIAL IVPUSH PRN (09:40)
[2022-09-21 09:44] LABS: ANISOCYTOSIS 0; HELMET CELLS 0; HOWELL-JOLLY BODIES 0; MACROCYTOSIS 0; OVALOCYTE 0; ROULEAU 0; SICKELED CELLS 0; TARGET CELLS 0; TEAR DROP CELLS 0; TOXIC GRANULATION 0
[2022-09-21] MEDS: DEXMEDETOMIDINE PREMIX 400 MCG/100 ML BAG IVPB SCH ×2 (10:20→21:42)
[2022-09-21] MEDS: MUPIROCIN 2% TOPICAL OINTMENT FOR DECOLONIZATION NS SCH ×2 (10:20→21:41)
[2022-09-21] MEDS: SENNOSIDES 8.6MG TABLET (FP) PO SCH ×2 (10:24→21:42)
[2022-09-21] MEDS: RIVAROXABAN 20 MG TABLET PO SCH (10:24)
[2022-09-21] MEDS: amLODIPine BESYLATE 5 MG TABLET (FP) PO SCH ×2 (10:24→10:40)
[2022-09-21] MEDS: PANTOPRAZOLE SODIUM 40 MG VIAL IVPUSH SCH (10:25)
[2022-09-21] MEDS: POLYETHYLENE GLYCOL (HEALTHYLAX) 3350 17 GM PACKET NGT SCH (10:25)
[2022-09-21] MEDS: LOSARTAN POTASSIUM 50 MG TABLET PO SCH ×2 (10:25→10:40)
[2022-09-21] MEDS: METOPROLOL TARTRATE 50 MG TABLET (FP) PO SCH ×3 (10:25→21:42)
[2022-09-21] MEDS ORDERED: LACTATED RINGERS SOLUTION 1000 ML INFUS.BAG IV ONE (10:55)
[2022-09-21 11:24] VITALS: BMI 18.8
[2022-09-21] MEDS ORDERED: hydrALAZINE HCL 20 MG/ML VIAL IVPUSH PRN (15:25)
[2022-09-21] MEDS: CHLORHEXIDINE GLUCONATE 4% CLEANSER FOR DECOLONIZATION TP SCH (21:41)
[2022-09-21] MEDS: OLANZapine 2.5 MG TABLET PO SCH (22:00)
[2022-09-21] MEDS ORDERED: LORazepam 2 MG/ML SDV VIAL IVPUSH ONE (22:30)
[2022-09-22] MEDS: PIPERACILLIN/TAZOB 3.375 GM 3.375 GM in DEXTROSE 5%-WATER - 50 ML IVPB SCH ×3 (01:13→17:58)
[2022-09-22] MEDS: THIAMINE HCL 200 MG/2 ML VIAL IVPB SCH ×2 (06:05→15:05)
[2022-09-22 08:09] LABS: HEMATOCRIT 33.6 % (35.4-49); HEMOGLOBIN 11.6 GM/dL (11.7-16.9); MCH 33.6 pg (25.7-33.7); MCHC 34.6 g/dl (32.0-35.9); MEAN CELL VOLUME 97.3 fl (80-96); MEAN PLT VOLUME 11.2 fl (7.5-11.1); PLATELET COUNT 104 10^3/uL (134-434); RBC 3.45 M/mm3 (4.00-5.60); RDW 13.7 % (11.9-15.9); WHITE BLOOD COUNT 8.5 K/mm3 (4.0-10.0)
[2022-09-22 08:17] LABS: BLOOD UREA NITROGEN 50.6 mg/dL (7-18); CALCIUM 9.1 mg/dL (8.5-10.1)
[2022-09-22 08:19] LABS: MAGNESIUM 2.1 mg/dL (1.8-2.4)
[2022-09-22 08:20] LABS: CREATININE 1.3 mg/dL (0.55-1.3)
[2022-09-22 08:21] LABS: PHOSPHOROUS 2.6 mg/dL (2.5-4.9)
[2022-09-22] MEDS: DEXTROSE 5%-0.45% SALINE 1,000 ML IV SCH (09:15)
[2022-09-22] MEDS: PANTOPRAZOLE SODIUM 40 MG VIAL IVPUSH SCH (09:37)
[2022-09-22] MEDS: POLYETHYLENE GLYCOL (HEALTHYLAX) 3350 17 GM PACKET NGT SCH (09:37)
[2022-09-22] MEDS: RIVAROXABAN 20 MG TABLET PO SCH (09:37)
[2022-09-22] MEDS: SENNOSIDES 8.6MG TABLET (FP) PO SCH ×2 (09:37→21:34)
[2022-09-22] MEDS: METOPROLOL TARTRATE 50 MG TABLET (FP) PO SCH ×2 (09:38→21:33)
[2022-09-22] MEDS: MUPIROCIN 2% TOPICAL OINTMENT FOR DECOLONIZATION NS SCH ×2 (09:38→21:35)
[2022-09-22] MEDS: ACETAMINOPHEN 1000 MG/100 ML BAG IVPB PRN (15:44)
[2022-09-22] MEDS: DEXMEDETOMIDINE PREMIX 400 MCG/100 ML BAG IVPB SCH ×2 (18:04→18:08)
[2022-09-22] MEDS: CHLORHEXIDINE GLUCONATE 4% CLEANSER FOR DECOLONIZATION TP SCH (21:33)
[2022-09-22] MEDS: OLANZapine 2.5 MG TABLET PO SCH (21:34)
[2022-09-23] MEDS: PIPERACILLIN/TAZOB 3.375 GM 3.375 GM in DEXTROSE 5%-WATER - 50 ML IVPB SCH ×3 (01:46→17:08)
[2022-09-23 06:45] LABS: ARTERIAL BLD GAS O2 SATURATION 98.6 % (95-98); ARTERIAL BLOOD GAS BASE EXCESS 2.7 mmol/L (-2-2); ARTERIAL BLOOD GAS pH 7.492 (7.350-7.450)
[2022-09-23 06:58] LABS: ALLENS TEST POSITIVE; VENT MODE A/C
[2022-09-23 06:59] LABS: VENT RATE 12
[2022-09-23 07:39] LABS: HEMATOCRIT 38.9 % (35.4-49); HEMOGLOBIN 13.5 GM/dL (11.7-16.9); MCH 33.5 pg (25.7-33.7); MCHC 34.7 g/dl (32.0-35.9); MEAN CELL VOLUME 96.4 fl (80-96); MEAN PLT VOLUME 10.7 fl (7.5-11.1); PLATELET COUNT 147 10^3/uL (134-434); RBC 4.03 M/mm3 (4.00-5.60); RDW 13.9 % (11.9-15.9); WHITE BLOOD COUNT 8.7 K/mm3 (4.0-10.0)
[2022-09-23 07:52] LABS: ALBUMIN 2.6 g/dl (3.4-5.0); BLOOD UREA NITROGEN 52.7 mg/dL (7-18); CALCIUM 9.9 mg/dL (8.5-10.1)
[2022-09-23 07:54] LABS: CREATININE 1.3 mg/dL (0.55-1.3)
[2022-09-23 07:55] LABS: BILIRUBIN,DIRECT 0.3 mg/dL (0.0-0.2); PHOSPHOROUS 2.3 mg/dL (2.5-4.9)
[2022-09-23 07:56] LABS: TOT PROT 5.9 g/dl (6.4-8.2)
[2022-09-23 07:58] LABS: BILIRUBIN,TOTAL 0.7 mg/dL (0.2-1)
[2022-09-23] MEDS: METOPROLOL TARTRATE 50 MG TABLET (FP) PO SCH ×2 (09:51→21:31)
[2022-09-23] MEDS: RIVAROXABAN 20 MG TABLET PO SCH (09:51)
[2022-09-23] MEDS: SENNOSIDES 8.6MG TABLET (FP) PO SCH ×2 (09:51→21:31)
[2022-09-23] MEDS: PANTOPRAZOLE SODIUM 40 MG VIAL IVPUSH SCH (09:51)
[2022-09-23] MEDS: MUPIROCIN 2% TOPICAL OINTMENT FOR DECOLONIZATION NS SCH ×2 (09:53→21:30)
[2022-09-23] MEDS: POLYETHYLENE GLYCOL (HEALTHYLAX) 3350 17 GM PACKET NGT SCH (10:07)
[2022-09-23] MEDS: hydrALAZINE HCL 20 MG/ML VIAL IVPUSH PRN (16:53)
[2022-09-23 18:07] LABS: CK-MM 100 % (97-100)
[2022-09-23] MEDS: DEXMEDETOMIDINE PREMIX 400 MCG/100 ML BAG IVPB SCH (18:27)
[2022-09-23] MEDS ORDERED: INSULIN (NOVOLOG) ASPART 100 UNITS/ML 10ML VIAL ONE (18:39)
[2022-09-23] MEDS: CHLORHEXIDINE GLUCONATE 4% CLEANSER FOR DECOLONIZATION TP SCH (21:30)
[2022-09-23] MEDS: OLANZapine 2.5 MG TABLET PO SCH (22:21)
[2022-09-24] MEDS: hydrALAZINE HCL 20 MG/ML VIAL IVPUSH PRN ×2 (00:14→13:56)
[2022-09-24] MEDS: PIPERACILLIN/TAZOB 3.375 GM 3.375 GM in DEXTROSE 5%-WATER - 50 ML IVPB SCH ×3 (01:45→17:43)
[2022-09-24] MEDS ORDERED: PIPERACILLIN/TAZOBACTAM 3.375 GM VIAL IVPB ONE (02:44)
[2022-09-24 07:03] LABS: HEMOGLOBIN 13.5 GM/dL (11.7-16.9); MCH 32.9 pg (25.7-33.7); MCHC 33.8 g/dl (32.0-35.9); MEAN CELL VOLUME 97.3 fl (80-96); MEAN PLT VOLUME 10.7 fl (7.5-11.1); PLATELET COUNT 153 10^3/uL (134-434); RBC 4.11 M/mm3 (4.00-5.60); RDW 14.2 % (11.9-15.9); WHITE BLOOD COUNT 8.1 K/mm3 (4.0-10.0)
[2022-09-24 07:27] LABS: CALCIUM 9.5 mg/dL (8.5-10.1)
[2022-09-24 07:28] LABS: ALBUMIN 2.7 g/dl (3.4-5.0); BLOOD UREA NITROGEN 40.7 mg/dL (7-18); MAGNESIUM 2.1 mg/dL (1.8-2.4)
[2022-09-24 07:31] LABS: CREATININE 1.3 mg/dL (0.55-1.3); PHOSPHOROUS 3.3 mg/dL (2.5-4.9)
[2022-09-24] MEDS: PANTOPRAZOLE SODIUM 40 MG VIAL IVPUSH SCH (09:10)
[2022-09-24] MEDS: SENNOSIDES 8.6MG TABLET (FP) PO SCH ×2 (09:11→21:54)
[2022-09-24] MEDS: METOPROLOL TARTRATE 50 MG TABLET (FP) PO SCH ×2 (09:12→22:38)
[2022-09-24] MEDS: RIVAROXABAN 20 MG TABLET PO SCH (09:12)
[2022-09-24] MEDS: POLYETHYLENE GLYCOL (HEALTHYLAX) 3350 17 GM PACKET NGT SCH (09:13)
[2022-09-24] MEDS: MUPIROCIN 2% TOPICAL OINTMENT FOR DECOLONIZATION NS SCH ×2 (09:13→21:53)
[2022-09-24] MEDS: DEXMEDETOMIDINE PREMIX 400 MCG/100 ML BAG IVPB SCH (09:14)
[2022-09-24 09:39] LABS: ANISOCYTOSIS 0; HELMET CELLS 0; HOWELL-JOLLY BODIES 0; MACROCYTOSIS 0; OVALOCYTE 0; ROULEAU 0; SICKELED CELLS 0; TARGET CELLS 0; TEAR DROP CELLS 0; TOXIC GRANULATION 0
[2022-09-24] MEDS ORDERED: AMINO ACIDS 4.25%/D5W 1,000 ML IV SCH ×2 (14:15→15:29)
[2022-09-24] MEDS: ALBUTEROL SO4 0.083% IH SOL 2.5 MG/3 ML VIAL.NEB. NEB SCH ×3 (14:30→21:13)
[2022-09-24] MEDS: ACETYLCYSTEINE 20% 200MG/ML 4 ML VIAL *FOR ORAL / INH USE ONLY PO SCH ×2 (16:33→22:39)
[2022-09-24] MEDS: CHLORHEXIDINE GLUCONATE 4% CLEANSER FOR DECOLONIZATION TP SCH (21:53)
[2022-09-24] MEDS: THIAMINE HCL 200 MG/2 ML VIAL IVPB SCH (22:39)
[2022-09-25] MEDS: PIPERACILLIN/TAZOB 3.375 GM 3.375 GM in DEXTROSE 5%-WATER - 50 ML IVPB SCH ×3 (02:44→17:16)
[2022-09-25] MEDS ORDERED: ACETAMINOPHEN 1000 MG/100 ML BAG IVPB PRN (03:55)
[2022-09-25] MEDS ORDERED: METOPROLOL TARTRATE 5 MG/5 ML VIAL IVPUSH PRN (03:55)
[2022-09-25] MEDS ORDERED: hydrALAZINE HCL 20 MG/ML VIAL IVPUSH PRN (03:55)
[2022-09-25] MEDS: THIAMINE HCL 200 MG/2 ML VIAL IVPB SCH ×3 (06:22→22:57)
[2022-09-25 07:54] LABS: HEMATOCRIT 34.7 % (35.4-49); HEMOGLOBIN 12.1 GM/dL (11.7-16.9); MCH 33.6 pg (25.7-33.7); MCHC 34.9 g/dl (32.0-35.9); MEAN CELL VOLUME 96.3 fl (80-96); MEAN PLT VOLUME 10.8 fl (7.5-11.1); PLATELET COUNT 161 10^3/uL (134-434); RBC 3.61 M/mm3 (4.00-5.60); RDW 13.9 % (11.9-15.9)
[2022-09-25] MEDS: ALBUTEROL SO4 0.083% IH SOL 2.5 MG/3 ML VIAL.NEB. NEB SCH ×2 (08:19→11:55)
[2022-09-25 08:21] LABS: CALCIUM 8.8 mg/dL (8.5-10.1)
[2022-09-25 08:25] LABS: CREATININE 1.6 mg/dL (0.55-1.3)
[2022-09-25 08:42] LABS: BLOOD UREA NITROGEN 66.2 mg/dL (7-18)
[2022-09-25] MEDS: POLYETHYLENE GLYCOL (HEALTHYLAX) 3350 17 GM PACKET NGT SCH (10:57)
[2022-09-25] MEDS: METOPROLOL TARTRATE 50 MG TABLET (FP) PO SCH ×2 (10:57→22:57)
[2022-09-25] MEDS: PANTOPRAZOLE SODIUM 40 MG VIAL IVPUSH SCH (10:57)
[2022-09-25] MEDS: SENNOSIDES 8.6MG TABLET (FP) PO SCH ×2 (10:57→22:57)
[2022-09-25] MEDS: RIVAROXABAN 20 MG TABLET PO SCH (10:57)
[2022-09-25] MEDS: KCL 10 MEQ IVPB 10 MEQ/100 ML INFUS.BAG IVPB SCH ×3 (10:58→14:28)
[2022-09-25] MEDS ORDERED: SODIUM CHLORIDE 0.45% 1,000 ML IV SCH (12:00)
[2022-09-25] MEDS: ALBUTEROL SO4 0.042% IH SOL 1.25 MG/3 ML VIAL.NEB NEB SCH ×2 (16:26→20:26)
[2022-09-25] MEDS: ACETYLCYSTEINE 20% 200MG/ML 4 ML VIAL *FOR ORAL / INH USE ONLY PO SCH (22:58)
[2022-09-26] MEDS: PIPERACILLIN/TAZOB 3.375 GM 3.375 GM in DEXTROSE 5%-WATER - 50 ML IVPB SCH ×3 (03:35→17:18)
[2022-09-26] MEDS: THIAMINE HCL 200 MG/2 ML VIAL IVPB SCH ×3 (06:16→22:19)
[2022-09-26 07:22] LABS: HEMOGLOBIN 11.7 GM/dL (11.7-16.9); MCH 33.4 pg (25.7-33.7); MCHC 34.5 g/dl (32.0-35.9); MEAN CELL VOLUME 96.9 fl (80-96); MEAN PLT VOLUME 10.8 fl (7.5-11.1); PLATELET COUNT 185 10^3/uL (134-434); RBC 3.51 M/mm3 (4.00-5.60); RDW 14.1 % (11.9-15.9)
[2022-09-26 07:50] LABS: CALCIUM 9.2 mg/dL (8.5-10.1)
[2022-09-26 07:51] LABS: ALBUMIN 2.3 g/dl (3.4-5.0); BLOOD UREA NITROGEN 61.9 mg/dL (7-18); MAGNESIUM 2.1 mg/dL (1.8-2.4)
[2022-09-26 07:54] LABS: CREATININE 1.4 mg/dL (0.55-1.3)
[2022-09-26 07:55] LABS: PHOSPHOROUS 2.2 mg/dL (2.5-4.9); TOT PROT 5.4 g/dl (6.4-8.2)
[2022-09-26 07:57] LABS: BILIRUBIN,TOTAL 0.5 mg/dL (0.2-1)
[2022-09-26] MEDS: ALBUTEROL SO4 0.042% IH SOL 1.25 MG/3 ML VIAL.NEB NEB SCH ×4 (08:13→20:15)
[2022-09-26] MEDS: ACETYLCYSTEINE 20% 200MG/ML 4 ML VIAL *FOR ORAL / INH USE ONLY PO SCH ×2 (08:18→11:23)
[2022-09-26] MEDS: POLYETHYLENE GLYCOL (HEALTHYLAX) 3350 17 GM PACKET NGT SCH (10:59)
[2022-09-26] MEDS: PANTOPRAZOLE SODIUM 40 MG VIAL IVPUSH SCH (10:59)
[2022-09-26] MEDS: SENNOSIDES 8.6MG TABLET (FP) PO SCH ×2 (10:59→22:20)
[2022-09-26] MEDS: RIVAROXABAN 20 MG TABLET PO SCH (10:59)
[2022-09-26] MEDS: METOPROLOL TARTRATE 50 MG TABLET (FP) PO SCH ×2 (11:09→22:19)
[2022-09-26] MEDS ORDERED: ACETYLCYSTEINE 20% 200MG/ML 4 ML VIAL *FOR ORAL / INH USE ONLY PO SCH (14:06)
[2022-09-26] MEDS ORDERED: DEXTROSE 5%-WATER - 1,000 ML IV SCH (17:15)
[2022-09-27] MEDS: PIPERACILLIN/TAZOB 3.375 GM 3.375 GM in DEXTROSE 5%-WATER - 50 ML IVPB SCH ×3 (03:34→17:15)
[2022-09-27] MEDS: THIAMINE HCL 200 MG/2 ML VIAL IVPB SCH ×3 (06:49→21:21)
[2022-09-27] MEDS: ALBUTEROL SO4 0.042% IH SOL 1.25 MG/3 ML VIAL.NEB NEB SCH ×4 (08:02→20:05)
[2022-09-27 08:07] LABS: CALCIUM 8.6 mg/dL (8.5-10.1)
[2022-09-27 08:10] LABS: CREATININE 1.2 mg/dL (0.55-1.3)
[2022-09-27 08:12] LABS: BILIRUBIN,TOTAL 0.4 mg/dL (0.2-1); TOT PROT 4.8 g/dl (6.4-8.2)
[2022-09-27 08:27] LABS: HEMATOCRIT 30.8 % (35.4-49); HEMOGLOBIN 10.6 GM/dL (11.7-16.9); MCH 33.1 pg (25.7-33.7); MCHC 34.3 g/dl (32.0-35.9); MEAN CELL VOLUME 96.6 fl (80-96); MEAN PLT VOLUME 10.7 fl (7.5-11.1); PLATELET COUNT 194 10^3/uL (134-434); RBC 3.19 M/mm3 (4.00-5.60); WHITE BLOOD COUNT 9.2 K/mm3 (4.0-10.0)
[2022-09-27 10:02] LABS: ANISOCYTOSIS 0; MACROCYTOSIS 1+
[2022-09-27] MEDS: RIVAROXABAN 20 MG TABLET PO SCH (10:11)
[2022-09-27] MEDS: PANTOPRAZOLE SODIUM 40 MG VIAL IVPUSH SCH (10:11)
[2022-09-27] MEDS: SENNOSIDES 8.6MG TABLET (FP) PO SCH ×2 (10:11→21:25)
[2022-09-27] MEDS: METOPROLOL TARTRATE 50 MG TABLET (FP) PO SCH ×2 (10:11→21:25)
[2022-09-27] MEDS: POLYETHYLENE GLYCOL (HEALTHYLAX) 3350 17 GM PACKET NGT SCH (10:12)
[2022-09-27] MEDS ORDERED: DEXTROSE 5%-WATER - 1,000 ML IV SCH (12:15)
[2022-09-27] MEDS ORDERED: POTASSIUM PHOSPHATE 15 MM in DEXTROSE 5%-WATER - 250 ML IVPB ONE (21:00)
[2022-09-28] MEDS: PIPERACILLIN/TAZOB 3.375 GM 3.375 GM in DEXTROSE 5%-WATER - 50 ML IVPB SCH ×3 (01:20→17:58)
[2022-09-28 06:44] LABS: HEMATOCRIT 31.3 % (35.4-49); HEMOGLOBIN 10.8 GM/dL (11.7-16.9); MCH 33.4 pg (25.7-33.7); MCHC 34.5 g/dl (32.0-35.9); MEAN CELL VOLUME 96.9 fl (80-96); MEAN PLT VOLUME 10.7 fl (7.5-11.1); PLATELET COUNT 216 10^3/uL (134-434); RBC 3.24 M/mm3 (4.00-5.60); RDW 13.6 % (11.9-15.9); WHITE BLOOD COUNT 8.4 K/mm3 (4.0-10.0)
[2022-09-28 07:07] LABS: CALCIUM 8.5 mg/dL (8.5-10.1)
[2022-09-28 07:08] LABS: BLOOD UREA NITROGEN 32.7 mg/dL (7-18); MAGNESIUM 1.9 mg/dL (1.8-2.4)
[2022-09-28 07:11] LABS: CREATININE 1.1 mg/dL (0.55-1.3); PHOSPHOROUS 2.8 mg/dL (2.5-4.9)
[2022-09-28] MEDS: ALBUTEROL SO4 0.042% IH SOL 1.25 MG/3 ML VIAL.NEB NEB SCH ×4 (08:08→21:02)
[2022-09-28] MEDS: AMINO ACIDS/PROTEIN HYDROLYS 30 ML LIQUID.PKT NGT SCH (08:26)
[2022-09-28] MEDS: PANTOPRAZOLE SODIUM 40 MG VIAL IVPUSH SCH (09:25)
[2022-09-28] MEDS: SENNOSIDES 8.6MG TABLET (FP) PO SCH ×2 (09:25→21:59)
[2022-09-28] MEDS: POLYETHYLENE GLYCOL (HEALTHYLAX) 3350 17 GM PACKET NGT SCH (09:25)
[2022-09-28] MEDS: RIVAROXABAN 20 MG TABLET PO SCH (09:26)
[2022-09-28] MEDS: METOPROLOL TARTRATE 50 MG TABLET (FP) PO SCH ×2 (09:26→21:59)
[2022-09-29] MEDS ORDERED: PIPERACILLIN/TAZOBACTAM 3.375 GM VIAL IVPB ONE (00:25)
[2022-09-29] MEDS: PIPERACILLIN/TAZOB 3.375 GM 3.375 GM in DEXTROSE 5%-WATER - 50 ML IVPB SCH ×3 (02:17→17:33)
[2022-09-29] MEDS: ALBUTEROL SO4 0.042% IH SOL 1.25 MG/3 ML VIAL.NEB NEB SCH ×4 (07:25→20:45)
[2022-09-29 07:40] LABS: BASO % 0.1 % (0-2.0); EOS % 0.3 % (0-4.5); HEMOGLOBIN 10.1 GM/dL (11.7-16.9); MCH 33.4 pg (25.7-33.7); MCHC 34.9 g/dl (32.0-35.9); MEAN CELL VOLUME 95.5 fl (80-96); MEAN PLT VOLUME 11.1 fl (7.5-11.1); MONO % 6.6 % (3.8-10.2); PLATELET COUNT 232 10^3/uL (134-434); RBC 3.04 M/mm3 (4.00-5.60); RDW 13.3 % (11.9-15.9); WHITE BLOOD COUNT 9.1 K/mm3 (4.0-10.0)
[2022-09-29 08:29] LABS: ALBUMIN 1.9 g/dl (3.4-5.0); BILIRUBIN,TOTAL 0.6 mg/dL (0.2-1); BLOOD UREA NITROGEN 23.9 mg/dL (7-18); CALCIUM 8.2 mg/dL (8.5-10.1); CREATININE 0.9 mg/dL (0.55-1.3); MAGNESIUM 1.9 mg/dL (1.8-2.4); TOT PROT 4.8 g/dl (6.4-8.2)
[2022-09-29] MEDS: RIVAROXABAN 20 MG TABLET PO SCH (09:42)
[2022-09-29] MEDS: AMINO ACIDS/PROTEIN HYDROLYS 30 ML LIQUID.PKT NGT SCH (09:42)
[2022-09-29] MEDS: SENNOSIDES 8.6MG TABLET (FP) PO SCH ×2 (09:42→21:44)
[2022-09-29] MEDS: PANTOPRAZOLE SODIUM 40 MG VIAL IVPUSH SCH (09:43)
[2022-09-29] MEDS: METOPROLOL TARTRATE 50 MG TABLET (FP) PO SCH ×2 (09:43→21:44)
[2022-09-29] MEDS: POLYETHYLENE GLYCOL (HEALTHYLAX) 3350 17 GM PACKET NGT SCH (09:43)
[2022-09-29] MEDS ORDERED: POTASSIUM PHOSPHATE 15 MM in DEXTROSE 5%-WATER - 250 ML IVPB ONE (14:00)
[2022-09-30] MEDS: PIPERACILLIN/TAZOB 3.375 GM 3.375 GM in DEXTROSE 5%-WATER - 50 ML IVPB SCH ×3 (02:51→17:11)
[2022-09-30 08:19] LABS: BASO % 0.1 % (0-2.0); EOS % 0.7 % (0-4.5); HEMATOCRIT 29.9 % (35.4-49); HEMOGLOBIN 10.4 GM/dL (11.7-16.9); LYMPH % 3.2 % (8-40); MCH 33.3 pg (25.7-33.7); MCHC 34.8 g/dl (32.0-35.9); MEAN CELL VOLUME 95.6 fl (80-96); MEAN PLT VOLUME 10.4 fl (7.5-11.1); MONO % 7.5 % (3.8-10.2); NEUT % 88.5 % (42.8-82.8); PLATELET COUNT 293 10^3/uL (134-434); RBC 3.12 M/mm3 (4.00-5.60); RDW 13.3 % (11.9-15.9); WHITE BLOOD COUNT 8.4 K/mm3 (4.0-10.0)
[2022-09-30] MEDS: ALBUTEROL SO4 0.042% IH SOL 1.25 MG/3 ML VIAL.NEB NEB SCH ×2 (08:55→11:40)
[2022-09-30 09:07] LABS: BLOOD UREA NITROGEN 20.1 mg/dL (7-18); CALCIUM 8.2 mg/dL (8.5-10.1)
[2022-09-30 09:08] LABS: MAGNESIUM 1.9 mg/dL (1.8-2.4)
[2022-09-30 09:10] LABS: BILIRUBIN,TOTAL 0.6 mg/dL (0.2-1); CREATININE 0.8 mg/dL (0.55-1.3); PHOSPHOROUS 2.3 mg/dL (2.5-4.9)
[2022-09-30] MEDS: SENNOSIDES 8.6MG TABLET (FP) PO SCH ×2 (09:38→21:57)
[2022-09-30] MEDS: PANTOPRAZOLE SODIUM 40 MG VIAL IVPUSH SCH (09:38)
[2022-09-30] MEDS: POLYETHYLENE GLYCOL (HEALTHYLAX) 3350 17 GM PACKET NGT SCH (09:39)
[2022-09-30] MEDS: AMINO ACIDS/PROTEIN HYDROLYS 30 ML LIQUID.PKT NGT SCH (09:39)
[2022-09-30] MEDS: RIVAROXABAN 20 MG TABLET PO SCH (09:39)
[2022-09-30] MEDS: METOPROLOL TARTRATE 50 MG TABLET (FP) PO SCH ×2 (09:39→21:57)
[2022-09-30] MEDS ORDERED: NAPH,MB-DB/K PH,MBDB POWDER PACKET PO ONE (10:32)
[2022-09-30] MEDS ORDERED: ACETAMINOPHEN 325 MG TABLET (FP) PO PRN (19:49)
[2022-09-30] MEDS ORDERED: HALOPERIDOL LACTATE 5 MG/ML IM ONE (22:34)
[2022-10-01] MEDS ORDERED: ACETAMINOPHEN 650 MG/20.3 ML ORAL SOLUTION (CUPS) NGT PRN (01:49)
[2022-10-01] MEDS: PIPERACILLIN/TAZOB 3.375 GM 3.375 GM in DEXTROSE 5%-WATER - 50 ML IVPB SCH ×3 (02:21→17:08)
[2022-10-01 08:03] LABS: HEMOGLOBIN 10.7 GM/dL (11.7-16.9); MCH 33.1 pg (25.7-33.7); MCHC 34.5 g/dl (32.0-35.9); MEAN CELL VOLUME 95.9 fl (80-96); MEAN PLT VOLUME 10.9 fl (7.5-11.1); PLATELET COUNT 369 10^3/uL (134-434); RBC 3.24 M/mm3 (4.00-5.60); RDW 13.3 % (11.9-15.9); WHITE BLOOD COUNT 7.9 K/mm3 (4.0-10.0)
[2022-10-01 08:49] LABS: ALBUMIN 2.1 g/dl (3.4-5.0); BLOOD UREA NITROGEN 19.4 mg/dL (7-18); CALCIUM 8.6 mg/dL (8.5-10.1)
[2022-10-01 08:50] LABS: MAGNESIUM 2.2 mg/dL (1.8-2.4)
[2022-10-01 08:52] LABS: CREATININE 0.9 mg/dL (0.55-1.3); PHOSPHOROUS 2.7 mg/dL (2.5-4.9)
[2022-10-01 08:54] LABS: TOT PROT 5.3 g/dl (6.4-8.2)
[2022-10-01 08:56] LABS: BILIRUBIN,TOTAL 0.8 mg/dL (0.2-1)
[2022-10-01] MEDS: SENNOSIDES 8.6MG TABLET (FP) PO SCH ×2 (10:30→22:13)
[2022-10-01] MEDS: METOPROLOL TARTRATE 50 MG TABLET (FP) PO SCH ×2 (10:30→22:13)
[2022-10-01] MEDS: PANTOPRAZOLE SODIUM 40 MG VIAL IVPUSH SCH (10:30)
[2022-10-01] MEDS: AMINO ACIDS/PROTEIN HYDROLYS 30 ML LIQUID.PKT NGT SCH (10:30)
[2022-10-01] MEDS: POLYETHYLENE GLYCOL (HEALTHYLAX) 3350 17 GM PACKET NGT SCH (10:30)
[2022-10-01] MEDS: RIVAROXABAN 20 MG TABLET PO SCH (10:31)
[2022-10-01] MEDS: OLANZapine 2.5 MG TABLET PO SCH (22:13)
[2022-10-02] MEDS: PIPERACILLIN/TAZOB 3.375 GM 3.375 GM in DEXTROSE 5%-WATER - 50 ML IVPB SCH ×3 (02:46→17:17)
[2022-10-02 07:50] LABS: HEMATOCRIT 30.9 % (35.4-49); HEMOGLOBIN 10.5 GM/dL (11.7-16.9); MCH 32.4 pg (25.7-33.7); MCHC 33.9 g/dl (32.0-35.9); MEAN CELL VOLUME 95.7 fl (80-96); PLATELET COUNT 444 10^3/uL (134-434); RBC 3.23 M/mm3 (4.00-5.60); RDW 13.4 % (11.9-15.9); WHITE BLOOD COUNT 7.4 K/mm3 (4.0-10.0)
[2022-10-02 08:07] LABS: ALBUMIN 2.3 g/dl (3.4-5.0); BLOOD UREA NITROGEN 26.6 mg/dL (7-18); MAGNESIUM 2.3 mg/dL (1.8-2.4)
[2022-10-02 08:10] LABS: CREATININE 1.1 mg/dL (0.55-1.3); PHOSPHOROUS 3.1 mg/dL (2.5-4.9)
[2022-10-02 08:11] LABS: BILIRUBIN,TOTAL 0.8 mg/dL (0.2-1); TOT PROT 5.6 g/dl (6.4-8.2)
[2022-10-02] MEDS: AMINO ACIDS/PROTEIN HYDROLYS 30 ML LIQUID.PKT NGT SCH (08:54)
[2022-10-02] MEDS: POLYETHYLENE GLYCOL (HEALTHYLAX) 3350 17 GM PACKET NGT SCH (09:06)
[2022-10-02] MEDS: METOPROLOL TARTRATE 50 MG TABLET (FP) PO SCH ×2 (09:06→22:12)
[2022-10-02] MEDS: PANTOPRAZOLE SODIUM 40 MG VIAL IVPUSH SCH (09:06)
[2022-10-02] MEDS: SENNOSIDES 8.6MG TABLET (FP) PO SCH ×2 (09:07→22:12)
[2022-10-02] MEDS: RIVAROXABAN 20 MG TABLET PO SCH (09:07)
[2022-10-02] MEDS: AMINO ACIDS 4.25%/D5W 1,000 ML IV SCH (15:16)
[2022-10-02] MEDS: OLANZapine 2.5 MG TABLET PO SCH (22:13)
[2022-10-03] MEDS: PIPERACILLIN/TAZOB 3.375 GM 3.375 GM in DEXTROSE 5%-WATER - 50 ML IVPB SCH ×3 (02:45→17:25)
[2022-10-03] MEDS: AMINO ACIDS 4.25%/D5W 1,000 ML IV SCH ×3 (02:58→14:08)
[2022-10-03 07:41] LABS: HEMOGLOBIN 11.6 GM/dL (11.7-16.9); MCH 33.7 pg (25.7-33.7); MCHC 35.2 g/dl (32.0-35.9); MEAN CELL VOLUME 95.9 fl (80-96); MEAN PLT VOLUME 10.8 fl (7.5-11.1); PLATELET COUNT 532 10^3/uL (134-434); RBC 3.44 M/mm3 (4.00-5.60); RDW 13.2 % (11.9-15.9)
[2022-10-03 08:06] LABS: BLOOD UREA NITROGEN 27.3 mg/dL (7-18); CALCIUM 8.9 mg/dL (8.5-10.1)
[2022-10-03 08:07] LABS: ALBUMIN 2.4 g/dl (3.4-5.0); MAGNESIUM 2.3 mg/dL (1.8-2.4)
[2022-10-03 08:10] LABS: PHOSPHOROUS 2.6 mg/dL (2.5-4.9)
[2022-10-03 08:11] LABS: BILIRUBIN,TOTAL 0.7 mg/dL (0.2-1); TOT PROT 6.1 g/dl (6.4-8.2)
[2022-10-03] MEDS: AMINO ACIDS/PROTEIN HYDROLYS 30 ML LIQUID.PKT NGT SCH (08:20)
[2022-10-03] MEDS: RIVAROXABAN 20 MG TABLET PO SCH (10:38)
[2022-10-03] MEDS: PANTOPRAZOLE SODIUM 40 MG VIAL IVPUSH SCH (10:38)
[2022-10-03] MEDS: SENNOSIDES 8.6MG TABLET (FP) PO SCH ×2 (10:38→22:01)
[2022-10-03] MEDS: POLYETHYLENE GLYCOL (HEALTHYLAX) 3350 17 GM PACKET NGT SCH (10:39)
[2022-10-03] MEDS: METOPROLOL TARTRATE 50 MG TABLET (FP) PO SCH ×2 (10:39→22:00)
[2022-10-03] MEDS ORDERED: ROSUVASTATIN CA 10 MG TABLET PO SCH (11:15)
[2022-10-03] MEDS ORDERED: LORazepam 2 MG/ML SDV VIAL IVPUSH PRN (15:57)
[2022-10-03] MEDS: LORazepam 2 MG/ML SDV VIAL IVPUSH SCH ×2 (16:25→23:00)
[2022-10-03] MEDS ORDERED: ENOXAPARIN NA (PORCINE) 40 MG/0.4 ML DISP.SYRIN SQ SCH (22:00)
[2022-10-03] MEDS: OLANZapine 2.5 MG TABLET PO SCH (22:01)
[2022-10-03] MEDS: ENOXAPARIN NA (PORCINE) 80 MG/0.8 ML DISP.SYRIN SQ SCH (22:16)
[2022-10-04] MEDS: AMINO ACIDS 4.25%/D5W 1,000 ML IV SCH ×3 (08:16→14:47)
[2022-10-04 08:23] LABS: HEMATOCRIT 31.2 % (35.4-49); MCH 33.8 pg (25.7-33.7); MCHC 35.4 g/dl (32.0-35.9); MEAN CELL VOLUME 95.6 fl (80-96); MEAN PLT VOLUME 10.6 fl (7.5-11.1); PLATELET COUNT 516 10^3/uL (134-434); RBC 3.26 M/mm3 (4.00-5.60); WHITE BLOOD COUNT 6.2 K/mm3 (4.0-10.0)
[2022-10-04 08:35] LABS: BLOOD UREA NITROGEN 32.2 mg/dL (7-18); CALCIUM 9.1 mg/dL (8.5-10.1)
[2022-10-04 08:36] LABS: ALBUMIN 2.3 g/dl (3.4-5.0); MAGNESIUM 2.2 mg/dL (1.8-2.4)
[2022-10-04 08:38] LABS: PHOSPHOROUS 2.4 mg/dL (2.5-4.9)
[2022-10-04 08:40] LABS: BILIRUBIN,TOTAL 0.5 mg/dL (0.2-1); TOT PROT 5.9 g/dl (6.4-8.2)
[2022-10-04] MEDS: METOPROLOL TARTRATE 50 MG TABLET (FP) PO SCH ×2 (12:05→22:23)
[2022-10-04] MEDS: POLYETHYLENE GLYCOL (HEALTHYLAX) 3350 17 GM PACKET NGT SCH (12:05)
[2022-10-04] MEDS: AMINO ACIDS/PROTEIN HYDROLYS 30 ML LIQUID.PKT NGT SCH (12:05)
[2022-10-04] MEDS: SENNOSIDES 8.6MG TABLET (FP) PO SCH ×2 (12:05→22:24)
[2022-10-04] MEDS: ENOXAPARIN NA (PORCINE) 80 MG/0.8 ML DISP.SYRIN SQ SCH ×2 (12:15→22:22)
[2022-10-04] MEDS: PANTOPRAZOLE SODIUM 40 MG VIAL IVPUSH SCH (12:15)
[2022-10-04] MEDS: LORazepam 2 MG/ML SDV VIAL IVPUSH SCH ×2 (12:16→22:26)
[2022-10-04] MEDS: NAPH,MB-DB/K PH,MBDB POWDER PACKET PO SCH ×2 (13:23→22:23)
[2022-10-04] MEDS ORDERED: POTASSIUM PHOSPHATE 15 MM in DEXTROSE 5%-WATER - 250 ML IVPB ONE (21:11)
[2022-10-04] MEDS: OLANZapine 2.5 MG TABLET PO SCH (22:24)
[2022-10-05] MEDS: AMINO ACIDS 4.25%/D5W 1,000 ML IV SCH ×2 (06:54→13:30)
[2022-10-05 07:11] LABS: HEMATOCRIT 31.8 % (35.4-49); HEMOGLOBIN 11.1 GM/dL (11.7-16.9); MCH 33.6 pg (25.7-33.7); MEAN PLT VOLUME 10.6 fl (7.5-11.1); PLATELET COUNT 478 10^3/uL (134-434); RBC 3.31 M/mm3 (4.00-5.60); RDW 13.3 % (11.9-15.9); WHITE BLOOD COUNT 5.7 K/mm3 (4.0-10.0)
[2022-10-05 07:45] LABS: ALBUMIN 2.3 g/dl (3.4-5.0); BLOOD UREA NITROGEN 26.9 mg/dL (7-18)
[2022-10-05 07:51] LABS: CREATININE 0.7 mg/dL (0.55-1.3); PHOSPHOROUS 2.6 mg/dL (2.5-4.9)
[2022-10-05 07:52] LABS: BILIRUBIN,TOTAL 0.5 mg/dL (0.2-1); TOT PROT 5.7 g/dl (6.4-8.2)
[2022-10-05] MEDS: NAPH,MB-DB/K PH,MBDB POWDER PACKET PO SCH (09:35)
[2022-10-05] MEDS: METOPROLOL TARTRATE 50 MG TABLET (FP) PO SCH ×2 (09:35→22:28)
[2022-10-05] MEDS: POLYETHYLENE GLYCOL (HEALTHYLAX) 3350 17 GM PACKET NGT SCH (09:35)
[2022-10-05] MEDS: AMINO ACIDS/PROTEIN HYDROLYS 30 ML LIQUID.PKT NGT SCH (09:35)
[2022-10-05] MEDS: LORazepam 2 MG/ML SDV VIAL IVPUSH SCH ×2 (10:12→22:31)
[2022-10-05] MEDS: ENOXAPARIN NA (PORCINE) 80 MG/0.8 ML DISP.SYRIN SQ SCH ×2 (10:13→22:27)
[2022-10-05] MEDS: SENNOSIDES 8.6MG TABLET (FP) PO SCH ×2 (10:14→22:28)
[2022-10-05] MEDS: PANTOPRAZOLE SODIUM 40 MG VIAL IVPUSH SCH (10:14)
[2022-10-05] MEDS: OLANZapine 2.5 MG TABLET PO SCH (22:29)
[2022-10-06] MEDS: AMINO ACIDS 4.25%/D5W 1,000 ML IV SCH ×3 (08:00→21:44)
[2022-10-06 08:33] LABS: ALBUMIN 2.4 g/dl (3.4-5.0); BLOOD UREA NITROGEN 26.4 mg/dL (7-18); CALCIUM 8.9 mg/dL (8.5-10.1)
[2022-10-06 08:34] LABS: MAGNESIUM 1.8 mg/dL (1.8-2.4)
[2022-10-06 08:36] LABS: CREATININE 0.8 mg/dL (0.55-1.3); PHOSPHOROUS 2.6 mg/dL (2.5-4.9)
[2022-10-06 08:38] LABS: BILIRUBIN,TOTAL 0.6 mg/dL (0.2-1); HEMATOCRIT 32.8 % (35.4-49); HEMOGLOBIN 11.5 GM/dL (11.7-16.9); MCH 33.2 pg (25.7-33.7); MCHC 35.1 g/dl (32.0-35.9); MEAN CELL VOLUME 94.6 fl (80-96); MEAN PLT VOLUME 10.5 fl (7.5-11.1); PLATELET COUNT 539 10^3/uL (134-434); RBC 3.46 M/mm3 (4.00-5.60); RDW 13.1 % (11.9-15.9); WHITE BLOOD COUNT 4.5 K/mm3 (4.0-10.0)
[2022-10-06] MEDS: LORazepam 2 MG/ML SDV VIAL IVPUSH SCH (11:30)
[2022-10-06] MEDS: ENOXAPARIN NA (PORCINE) 80 MG/0.8 ML DISP.SYRIN SQ SCH ×2 (12:00→21:07)
[2022-10-06] MEDS: PANTOPRAZOLE SODIUM 40 MG VIAL IVPUSH SCH (14:38)
[2022-10-06] MEDS: POLYETHYLENE GLYCOL (HEALTHYLAX) 3350 17 GM PACKET NGT SCH (14:38)
[2022-10-06] MEDS: AMINO ACIDS/PROTEIN HYDROLYS 30 ML LIQUID.PKT NGT SCH (14:38)
[2022-10-06] MEDS: SENNOSIDES 8.6MG TABLET (FP) PO SCH ×2 (14:39→21:07)
[2022-10-06] MEDS ORDERED: LORazepam 2 MG/ML SDV VIAL IVPUSH PRN (17:36)
[2022-10-06] MEDS: OLANZapine 2.5 MG TABLET PO SCH (21:07)
[2022-10-07] MEDS: AMINO ACIDS 4.25%/D5W 1,000 ML IV SCH ×2 (03:16→14:25)
[2022-10-07 08:21] LABS: HEMATOCRIT 31.3 % (35.4-49); HEMOGLOBIN 10.8 GM/dL (11.7-16.9); MCH 32.8 pg (25.7-33.7); MCHC 34.5 g/dl (32.0-35.9); MEAN PLT VOLUME 10.5 fl (7.5-11.1); PLATELET COUNT 571 10^3/uL (134-434); RBC 3.29 M/mm3 (4.00-5.60); RDW 13.4 % (11.9-15.9); WHITE BLOOD COUNT 6.2 K/mm3 (4.0-10.0)
[2022-10-07 08:52] LABS: ALBUMIN 2.5 g/dl (3.4-5.0); BLOOD UREA NITROGEN 30.4 mg/dL (7-18); CALCIUM 9.2 mg/dL (8.5-10.1)
[2022-10-07 08:55] LABS: CREATININE 0.8 mg/dL (0.55-1.3); PHOSPHOROUS 2.5 mg/dL (2.5-4.9)
[2022-10-07 08:57] LABS: BILIRUBIN,TOTAL 0.7 mg/dL (0.2-1); TOT PROT 6.3 g/dl (6.4-8.2)
[2022-10-07] MEDS: PANTOPRAZOLE SODIUM 40 MG VIAL IVPUSH SCH (10:05)
[2022-10-07] MEDS: AMINO ACIDS/PROTEIN HYDROLYS 30 ML LIQUID.PKT NGT SCH (10:06)
[2022-10-07] MEDS: SENNOSIDES 8.6MG TABLET (FP) PO SCH ×2 (10:06→21:13)
[2022-10-07] MEDS: ENOXAPARIN NA (PORCINE) 80 MG/0.8 ML DISP.SYRIN SQ SCH ×2 (10:07→21:04)
[2022-10-07] MEDS: POLYETHYLENE GLYCOL (HEALTHYLAX) 3350 17 GM PACKET NGT SCH (10:08)
[2022-10-07] MEDS: THIAMINE HCL 200 MG/2 ML VIAL IVPB SCH ×2 (14:19→21:04)
[2022-10-07] MEDS: OLANZapine 2.5 MG TABLET PO SCH (21:04)
[2022-10-08] MEDS: AMINO ACIDS 4.25%/D5W 1,000 ML IV SCH ×2 (05:56→14:23)
[2022-10-08] MEDS: THIAMINE HCL 200 MG/2 ML VIAL IVPB SCH ×3 (06:43→22:23)
[2022-10-08 07:24] LABS: HEMATOCRIT 31.3 % (35.4-49); HEMOGLOBIN 10.9 GM/dL (11.7-16.9); MCHC 34.7 g/dl (32.0-35.9); PLATELET COUNT 484 10^3/uL (134-434); RDW 13.4 % (11.9-15.9); WHITE BLOOD COUNT 5.2 K/mm3 (4.0-10.0)
[2022-10-08 07:46] LABS: ALBUMIN 2.4 g/dl (3.4-5.0); BLOOD UREA NITROGEN 37.1 mg/dL (7-18); CALCIUM 9.1 mg/dL (8.5-10.1)
[2022-10-08 07:50] LABS: PHOSPHOROUS 2.9 mg/dL (2.5-4.9)
[2022-10-08 07:51] LABS: BILIRUBIN,TOTAL 0.8 mg/dL (0.2-1); TOT PROT 5.8 g/dl (6.4-8.2)
[2022-10-08] MEDS: POLYETHYLENE GLYCOL (HEALTHYLAX) 3350 17 GM PACKET NGT SCH (10:00)
[2022-10-08] MEDS: PANTOPRAZOLE SODIUM 40 MG VIAL IVPUSH SCH (10:45)
[2022-10-08] MEDS: ENOXAPARIN NA (PORCINE) 80 MG/0.8 ML DISP.SYRIN SQ SCH (10:45)
[2022-10-08] MEDS: SENNOSIDES 8.6MG TABLET (FP) PO SCH ×2 (10:46→22:23)
[2022-10-08] MEDS: SODIUM CHLORIDE 0.45% 1,000 ML IV SCH (13:30)
[2022-10-08] MEDS ORDERED: OLANZapine 5 MG TABLET PO SCH (21:22)
[2022-10-08] MEDS ORDERED: ENOXAPARIN NA (PORCINE) 80 MG/0.8 ML DISP.SYRIN SQ ONE (22:00)
[2022-10-08] MEDS: METOPROLOL TARTRATE 50 MG TABLET (FP) PO SCH ×3 (22:22→23:00)
[2022-10-08] MEDS: OLANZapine 2.5 MG TABLET PO SCH (22:24)
[2022-10-09] MEDS: AMINO ACIDS 4.25%/D5W 1,000 ML IV SCH ×2 (06:03→14:27)
[2022-10-09] MEDS: THIAMINE HCL 200 MG/2 ML VIAL IVPB SCH ×3 (06:05→21:18)
[2022-10-09 07:57] LABS: HEMATOCRIT 31.4 % (35.4-49); MCH 33.5 pg (25.7-33.7); MCHC 34.9 g/dl (32.0-35.9); MEAN PLT VOLUME 11.2 fl (7.5-11.1); PLATELET COUNT 466 10^3/uL (134-434); RBC 3.27 M/mm3 (4.00-5.60); RDW 13.8 % (11.9-15.9); WHITE BLOOD COUNT 4.9 K/mm3 (4.0-10.0)
[2022-10-09 09:22] LABS: CALCIUM 9.6 mg/dL (8.5-10.1)
[2022-10-09 09:23] LABS: ALBUMIN 2.5 g/dl (3.4-5.0); BLOOD UREA NITROGEN 36.1 mg/dL (7-18); MAGNESIUM 2.2 mg/dL (1.8-2.4)
[2022-10-09 09:25] LABS: PHOSPHOROUS 3.2 mg/dL (2.5-4.9)
[2022-10-09 09:27] LABS: BILIRUBIN,TOTAL 0.5 mg/dL (0.2-1)
[2022-10-09] MEDS: PANTOPRAZOLE SODIUM 40 MG VIAL IVPUSH SCH (11:01)
[2022-10-09] MEDS: METOPROLOL TARTRATE 50 MG TABLET (FP) PO SCH ×2 (11:01→21:17)
[2022-10-09] MEDS: LOSARTAN POTASSIUM 50 MG TABLET PO SCH (11:01)
[2022-10-09] MEDS: SENNOSIDES 8.6MG TABLET (FP) PO SCH ×2 (11:01→21:17)
[2022-10-09] MEDS: POLYETHYLENE GLYCOL (HEALTHYLAX) 3350 17 GM PACKET NGT SCH (11:09)
[2022-10-09] MEDS: SODIUM CHLORIDE 0.45% 1,000 ML IV SCH (13:30)
[2022-10-09] MEDS ORDERED: RIVAROXABAN 20 MG TABLET GT SCH (18:00)
[2022-10-09] MEDS: OLANZapine 2.5 MG TABLET PO SCH (21:17)
[2022-10-10] MEDS: AMINO ACIDS 4.25%/D5W 1,000 ML IV SCH (05:02)
[2022-10-10] MEDS: THIAMINE HCL 200 MG/2 ML VIAL IVPB SCH ×2 (06:00→14:01)
[2022-10-10 08:22] LABS: HEMATOCRIT 31.4 % (35.4-49); HEMOGLOBIN 10.8 GM/dL (11.7-16.9); MCH 33.2 pg (25.7-33.7); MCHC 34.5 g/dl (32.0-35.9); MEAN CELL VOLUME 96.3 fl (80-96); PLATELET COUNT 460 10^3/uL (134-434); RBC 3.27 M/mm3 (4.00-5.60); RDW 13.9 % (11.9-15.9); WHITE BLOOD COUNT 5.9 K/mm3 (4.0-10.0)
[2022-10-10 08:42] LABS: CALCIUM 9.6 mg/dL (8.5-10.1)
[2022-10-10 08:43] LABS: ALBUMIN 2.5 g/dl (3.4-5.0); BLOOD UREA NITROGEN 45.6 mg/dL (7-18); MAGNESIUM 2.1 mg/dL (1.8-2.4)
[2022-10-10 08:45] LABS: CREATININE 1.2 mg/dL (0.55-1.3); PHOSPHOROUS 2.8 mg/dL (2.5-4.9)
[2022-10-10 08:47] LABS: BILIRUBIN,TOTAL 0.4 mg/dL (0.2-1); TOT PROT 5.9 g/dl (6.4-8.2)
[2022-10-10] MEDS: LOSARTAN POTASSIUM 50 MG TABLET PO SCH (09:59)
[2022-10-10] MEDS: METOPROLOL TARTRATE 50 MG TABLET (FP) PO SCH (09:59)
[2022-10-10] MEDS: PANTOPRAZOLE SODIUM 40 MG VIAL IVPUSH SCH (09:59)
[2022-10-10] MEDS: SENNOSIDES 8.6MG TABLET (FP) PO SCH (09:59)
[2022-10-10] MEDS: POLYETHYLENE GLYCOL (HEALTHYLAX) 3350 17 GM PACKET NGT SCH (10:00)
[2022-10-10] MEDS ORDERED: SODIUM CHLORIDE 0.45% 1,000 ML IV SCH (13:20)
[2022-10-10 15:12] VITALS: BP 117/86; PULSE 66; RESP 18; TEMP 98.4
== END 2022-10-10 16:03 | DRG 557 ==
LOC: JER 18:16 → JERBED 22:55 → J4S 09-17 15:21 → OBSVTOIN 09-18 14:16 → JICU 09-20 04:55 → J4W 09-24 14:27
PROVIDERS: ADMIT Internal Medicine Pulmonary Disease; ATTEND Internal Medicine
PROC: 0BH17EZ Insertion of Endotracheal Airway into Trachea, Via Natural or Artificial Opening (ICD-10-PCS; principal; 2022-09-20)
PROC: 5A1945Z Respiratory Ventilation, 24-96 Consecutive Hours (ICD-10-PCS; 2022-09-20)
PROC: 5A12012 Performance of Cardiac Output, Single, Manual (ICD-10-PCS; 2022-09-20)
DX: M62.82 Rhabdomyolysis (principal); E43 Unspecified severe protein-calorie malnutrition; J96.01 Acute respiratory failure with hypoxia; J69.0 Pneumonitis due to inhalation of food and vomit; I46.9 Cardiac arrest, cause unspecified; E87.29 Other acidosis; E87.0 Hyperosmolality and hypernatremia; Z68.1 Body mass index [BMI] 19.9 or less, adult; N17.9 Acute kidney failure, unspecified; I48.92 Unspecified atrial flutter; G93.49 Other encephalopathy; E72.20 Disorder of urea cycle metabolism, unspecified; R53.81 Other malaise; I48.91 Unspecified atrial fibrillation; R13.10 Dysphagia, unspecified; E78.5 Hyperlipidemia, unspecified; I10 Essential (primary) hypertension; I49.8 Other specified cardiac arrhythmias; M54.50 Low back pain, unspecified; D72.819 Decreased white blood cell count, unspecified; W18.39XA Other fall on same level, initial encounter; R41.82 Altered mental status, unspecified; F03.90 Unspecified dementia, unspecified severity, without behavioral disturbance, psychotic disturbance, mood disturbance, and anxiety; R62.7 Adult failure to thrive; D69.6 Thrombocytopenia, unspecified; Y92.488 Other paved roadways as the place of occurrence of the external cause; Z71.89 Other specified counseling
CPT/HCPCS: 0241U-QW; 31500; 36415; 36600; 70450-TC; 71045-TC-FY; 72100-TC-FY; 72170-TC-FY; 80048; 80053; 80076; 80307; 81003; 82140; 82436; 82550; 82552; 82553; 82570; 82607; 82803; 83605; 83735; 84100; 84133; 84300; 84443; 84484; 85025; 85027; 85610; 85730; 86780; 86850; 86900; 86901; 87040; 87070; 87086; 87186; 87205; 93005; 93010; 93306-TC; 94002; 94640; 97116-GP; 97162-GP; 99285-25; C9803-CS; G0378; U0003; U0005